=== PATIENT | female | born 1985 | race American Indian/Alaskan Native ===

== ENCOUNTER 2016-10-07 23:56 | Emergency (ER) | payer OTHER ==
[2016-10-08 03:35] LABS: Basophils % (Auto) 0.5 % (0.0-1.8); Eosinophils % (Auto) 0.5 % (0.0-4.3); Hematocrit 35.3 % (30.3-42.9); Hemoglobin 12.4 gm/dl (10.1-14.3); Mean Corpuscular HGB Conc 35 % (30-34); Mean Corpuscular Hemoglobin 27 pg (28-32); Mean Corpuscular Volume 78 fl (79-97); Platelet Count 189 K/mm3 (140-440); Red Blood Count 4.55 M/mm3 (3.65-5.03); Red Cell Distribution Width 13.6 % (13.2-15.2); White Blood Count 15.2 K/mm3 (4.5-11.0)
--- NOTE | 2016-10-08 04:41 | Ultrasound Report ---
FINAL REPORT PROCEDURE: US OB \T\lt; = 14 WEEKS FETUS TECHNIQUE: Real-time transabdominal sonography of the uterus, placenta, amniotic fluid, adnexa, and fetus was performed with image documentation. Measurements were obtained to determine age/size. M-mode Doppler was used to document heartbeat. CPT 88987 HISTORY: Vaginal bleeding. . COMPARISON: No prior studies are available for comparison. FINDINGS: LMP: 07/10/2016. Clinical age: 13 weeks 2 days. EDC: 04/13/2017. CRL: 73.5 millimeters, which corresponds to a gestational age of: 13 weeks, 3 days. Yolk Sac: Normal. Embryonic Cardiac Activity: 166 beats per minute. Gestational Sac: Small subchorionic bleed. Amniotic fluid: Normal. Cervix: Normal. Right Ovary: 3 x 2.9 x 1.6 centimeters. Left Ovary: 2.7 x 1.2 x 1.9 centimeters. Uterus: 12.6 x 9.0 x 9.5 centimeters Estimated delivery date: 04/12/2017 Uterus and adnexa: Normal. IMPRESSION: Single live intrauterine gestation at approximately 13 weeks 3 days EDC by US 04/12/2017. Small subchorionic bleed, can be re-evaluated on followup study.
[2016-10-08 11:42] VITALS: BP 117/82
[2016-10-08 11:49] LABS: Bacteria,Urine 1+ /HPF (Negative); Bilirubin,Urine NEG (Negative); Blood,Urine LG (Negative); Ketones,Urine 20 mg/dL (Negative); Leukocyte Esterase,Urine LG (Negative); Mucus,Urine 3+ /HPF; Nitrite,Urine NEG (Negative)
--- NOTE | 2016-10-08 12:31 | Emergency Department Report ---
ED General Adult HPI - General Chief complaint: Vaginal Bleeding Stated complaint: 14 WKS W/SPOTTING/LEAKING FLUID Time Seen by Provider: 10/08/16 11:25 Source: patient Mode of arrival: Ambulatory Limitations: No Limitations - History of Present Illness Initial comments: Patient presented for evaluation of her because she had vaginal spotting which has now subsided. She complained of some lower abdominal cramping but no significant pain. She denied fever or chills. She's had no dysuria or vaginal discharge. She states she is approximately 14 weeks of gestational age. She is going to a engineering designer at [employer]. She reports 4 previous pregnancies 2 live children 1 miscarriage. She states that all of her pregnancies have been complicated by vaginal bleeding during . She has had a previous cerclage she states. -: hour(s) Location: pelvis Consistency: intermittent Improves with: none Worsens with: none Associated Symptoms: denies other symptoms - Related Data Home Medications Medication Instructions Recorded Confirmed Last Taken Vit#96/Ferrous Fum/FA 1 tab PO QDAY 04/27/13 04/27/13 04/27/13 08:00 [ Tablet] Previous Rx's Medication Instructions Recorded Last Taken Type Butalb/Acetamin/Caff 50-325-40 1 each PO Q4H PRN #20 tablet 04/27/13 Unknown Rx [Fioricet] Ibuprofen [Motrin] 800 mg PO TID PRN #20 tablet 04/27/13 Unknown Rx HYDROcodone/APAP 5-325 [[place] 1 each PO Q6HR PRN #10 tablet 03/01/14 Unknown Rx 5/325] Ondansetron [Zofran Odt] 4 mg PO Q6H PRN #8 tab.rapdis 03/01/14 Unknown Rx Ibuprofen [Motrin 800 MG tab] 800 mg PO Q8HR PRN #30 tablet 04/24/15 Unknown Rx traMADol [Ultram 50 MG tab] 50 mg PO Q6HR PRN #15 tablet 04/24/15 Unknown Rx Cefuroxime [Ceftin] 250 mg PO Q12H #14 tablet 10/08/16 Unknown Rx Allergies Allergy/AdvReac Type Severity Reaction Status Date / Time codeine Allergy Hives Verified 04/27/13 18:01 latex Allergy Hives Verified 04/27/13 18:01 ED Review of Systems ROS: Stated complaint: 14 WKS W/SPOTTING/LEAKING FLUID Other details as noted in HPI Constitutional: denies: chills, fever Eyes: denies: eye pain, eye discharge, vision change ENT: denies: ear pain, throat pain Respiratory: denies: cough, shortness of breath, wheezing Cardiovascular: denies: chest pain, palpitations Endocrine: no symptoms reported Gastrointestinal: denies: abdominal pain, nausea, diarrhea Genitourinary: as per HPI. denies: urgency, dysuria, discharge Musculoskeletal: denies: back pain, joint swelling, arthralgia Skin: denies: rash, lesions Neurological: denies: headache, weakness, paresthesias Psychiatric: denies: anxiety, depression Hematological/Lymphatic: denies: easy bleeding, easy bruising ED Past Medical Hx - Past Medical History Previous Medical History?: Yes Hx Headaches / Migraines: Yes Hx Kidney Stones: Yes Hx Asthma: Yes Additional medical history: 14 weeks - Surgical History Additional Surgical History: c section - Social History Smoking Status: Never Smoker - Medications Home Medications: Home Medications Medication Instructions Recorded Confirmed Last Taken Type Butalb/Acetamin/Caff 50-325-40 1 each PO Q4H PRN #20 tablet 04/27/13 Unknown Rx [Fioricet] Ibuprofen [Motrin] 800 mg PO TID PRN #20 tablet 04/27/13 Unknown Rx Vit#96/Ferrous Fum/FA 1 tab PO QDAY 04/27/13 04/27/13 04/27/13 08:00 History [ Tablet] HYDROcodone/APAP 5-325 [[place] 1 each PO Q6HR PRN #10 tablet 03/01/14 Unknown Rx 5/325] Ondansetron [Zofran Odt] 4 mg PO Q6H PRN #8 tab.rapdis 03/01/14 Unknown Rx Ibuprofen [Motrin 800 MG tab] 800 mg PO Q8HR PRN #30 tablet 04/24/15 Unknown Rx traMADol [Ultram 50 MG tab] 50 mg PO Q6HR PRN #15 tablet 04/24/15 Unknown Rx Cefuroxime [Ceftin] 250 mg PO Q12H #14 tablet 10/08/16 Unknown Rx ED Physical Exam - General Limitations: No Limitations General appearance: alert, in no apparent distress - Head Head exam: Present: atraumatic - Eye Eye exam: Absent: scleral icterus - ENT ENT exam: Present: normal exam - Neck Neck exam: Present: normal inspection. Absent: tenderness, meningismus - Respiratory Respiratory exam: Present: normal lung sounds bilaterally. Absent: respiratory distress, wheezes, rales, rhonchi, stridor - Cardiovascular Cardiovascular Exam: Present: regular rate - GI/Abdominal GI/Abdominal exam: Present: soft, normal bowel sounds. Absent: distended, tenderness, guarding, rebound - Extremities Exam Extremities exam: Present: normal inspection - Neurological Exam Neurological exam: Present: alert, CN II-XII intact. Absent: motor sensory deficit - Psychiatric Psychiatric exam: Present: normal affect, normal mood - Skin Skin exam: Present: warm, dry, intact, normal color. Absent: rash ED Course Vital Signs 10/08/16 02:39 Temperature 99.1 F Pulse Rate 97 H Respiratory 18 Rate Blood Pressure 115/75 O2 Sat by Pulse 100 Oximetry ED Medical Decision Making - Lab Data Result diagrams: 10/08/16 03:01 Laboratory Results - last 24 hr 10/08/16 10/08/16 10/08/16 03:00 03:01 03:01 WBC 15.2 H RBC 4.55 Hgb 12.4 Hct 35.3 MCV 78 L MCH 27 L MCHC 35 H RDW 13.6 Plt Count 189 Lymph % (Auto) 8.5 L [place] % (Auto) 4.7 Eos % (Auto) 0.5 Baso % (Auto) 0.5 Lymph # 1.3 [place] # 0.7 Eos # 0.1 Baso # 0.1 Seg Neutrophils % 85.8 H Seg Neutrophils # 13.0 H HCG, Quant [id number] H Blood Type A POSITIVE [place] Antibody Screen Negative Laboratory Results - last 24 hr 10/08/16 10/08/16 10/08/16 03:00 03:01 03:01 WBC 15.2 H RBC 4.55 Hgb 12.4 Hct 35.3 MCV 78 L MCH 27 L MCHC 35 H RDW 13.6 Plt Count 189 Lymph % (Auto) 8.5 L [place] % (Auto) 4.7 Eos % (Auto) 0.5 Baso % (Auto) 0.5 Lymph # 1.3 [place] # 0.7 Eos # 0.1 Baso # 0.1 Seg Neutrophils % 85.8 H Seg Neutrophils # 13.0 H HCG, Quant [id number] H Blood Type A POSITIVE [place] Antibody Screen Negative Laboratory Results - last 24 hr 10/08/16 10/08/16 10/08/16 03:00 03:01 03:01 WBC 15.2 H RBC 4.55 Hgb 12.4 Hct 35.3 MCV 78 L MCH 27 L MCHC 35 H RDW 13.6 Plt Count 189 Lymph % (Auto) 8.5 L [place] % (Auto) 4.7 Eos % (Auto) 0.5 Baso % (Auto) 0.5 Lymph # 1.3 [place] # 0.7 Eos # 0.1 Baso # 0.1 Seg Neutrophils % 85.8 H Seg Neutrophils # 13.0 H HCG, Quant [id number] H Urine Color Urine Turbidity Urine pH Ur Specific [place] Urine Protein Urine Glucose (UA) Urine Ketones Urine Blood Urine Nitrite Urine Bilirubin Urine Urobilinogen Ur Leukocyte Esterase Urine WBC (Auto) Urine RBC (Auto) U Epithel Cells (Auto) Urine Bacteria (Auto) Urine Mucus Blood Type A POSITIVE [place] Antibody Screen Negative 10/08/16 11:21 WBC RBC Hgb Hct MCV MCH MCHC RDW Plt Count Lymph % (Auto) [place] % (Auto) Eos % (Auto) Baso % (Auto) Lymph # [place] # Eos # Baso # Seg Neutrophils % Seg Neutrophils # HCG, Quant Urine Color Yellow Urine Turbidity Clear Urine pH 5.0 Ur Specific [place] 1.029 Urine Protein 30 mg/dl Urine Glucose (UA) Neg Urine Ketones 20 Urine Blood Lg Urine Nitrite Neg Urine Bilirubin Neg Urine Urobilinogen 2.0 Ur Leukocyte Esterase Lg Urine WBC (Auto) 67.0 H Urine RBC (Auto) 20.0 U Epithel Cells (Auto) 3.0 Urine Bacteria (Auto) 1+ Urine Mucus 3+ Blood Type [place] Antibody Screen - Radiology Data interpreted by me: Ultrasound showed a small subchorionic hemorrhage and a viable fetus of between 13-14 weeks Critical care attestation.: If time is entered above; I have spent that time in minutes in the direct care of this critically ill patient, excluding procedure time. ED Disposition Clinical Impression: Threatened miscarriage Subchorionic hemorrhage Qualifiers: Fetus number: single or unspecified fetus Trimester: first trimester Qualified Code(s): O41.8X10 - Other specified disorders of amniotic fluid and membranes, first trimester, not applicable or unspecified UTI (urinary tract infection) Qualifiers: Urinary tract infection type: site unspecified Hematuria presence: without hematuria Qualified Code(s): N39.0 - Urinary tract infection, site not specified Disposition: TO HOME OR SELFCARE Is pt being admited?: No Does the pt Need Aspirin: No Condition: Stable Instructions: Threatened Miscarriage (ED), Urinary Tract Infection in Women (ED ) Additional Instructions: Here urinalysis didn't suggest that you have a urine infection. A urine culture result will be ready in 2-3 days. Have your business applications specialist follow-up on this. Return any acute change or problem. Tylenol as needed for pain. Give your business applications specialist a copy of your current ultrasound report. Prescriptions: Cefuroxime [Ceftin] 250 mg PO Q12H #14 tablet Referrals: PRIMARY CAREMD [Primary Care Provider] - 3-5 Days [facility] [Other] - 3-5 Days Time of Disposition: 12:41
[2016-10-08] MEDS ORDERED: TYLENOL PO ONE (12:34)
[2016-10-08] MEDS ORDERED: TYLENOL ONE (12:35)
== END 2016-10-08 13:25 | disposition home or self-care (01) ==
LOC: ED 23:56
DX: O20.0 Threatened abortion (principal); O41.8X10 Other specified disorders of amniotic fluid and membranes, first trimester, not applicable or unspecified; N39.0 Urinary tract infection, site not specified; G43.909 Migraine, unspecified, not intractable, without status migrainosus; J45.909 Unspecified asthma, uncomplicated; Z3A.13 13 weeks gestation of pregnancy; O23.41 Unspecified infection of urinary tract in pregnancy, first trimester
CPT/HCPCS: 36415; 76801; 81001; 84702; 85025; 86850; 86900; 86901; 99284